=== PATIENT | female | born 1945 | race Caucasian/White ===

== ENCOUNTER 2017-05-18 18:18 | Emergency (ER) | payer OTHER, MEDICAID ==
[2017-05-18] MEDS: KETOROLAC 30 MG INJ IM (20:53)
== END 2017-05-18 21:08 | disposition home or self-care (01) ==
LOC: FTE 18:18
DX: F41.9 Anxiety disorder, unspecified (principal); M25.50 Pain in unspecified joint
CPT/HCPCS: 96372; 99284-25

== ENCOUNTER 2018-01-09 15:16 | Emergency (ER) | payer OTHER, MEDICAID | END 2018-01-09 17:00 | disposition home or self-care (01) | LOC: FTE 15:16 | DX: R21 Rash and other nonspecific skin eruption (principal); Z87.891 Personal history of nicotine dependence | CPT/HCPCS: 99283 ==

== ENCOUNTER 2018-05-10 14:18 | Emergency (ER) | payer OTHER ==
[2018-05-10 15:09] LABS: ADD MAN DIFF? NO
[2018-05-10 15:11] LABS: BASOPHIL # 0.1 10^3/ul (0.0-0.1); BASOPHILS % 0.5 % (0.0-2.0); EOSINOPHILS # 0.1 10^3/ul (0.0-0.5); EOSINOPHILS % 0.5 % (0.0-7.0); HEMATOCRIT 36.9 % (37.0-47.0); HEMOGLOBIN 11.8 g/dl (12.0-16.0); LYMPHOCYTES # 2.1 10^3/ul (0.8-2.9); LYMPHOCYTES % 18.8 % (15.0-51.0); MEAN CORPUSCULAR HEMOGLOBIN 27.4 pg (29.0-33.0); MEAN CORPUSCULAR VOLUME 85.8 fl (82.0-101.0); MEAN PLATELET VOLUME 10.9 fl (7.4-10.4); MONOCYTE # 0.9 10^3/ul (0.3-0.9); MONOCYTES % 8.1 % (0.0-11.0); NEUTROPHIL # 7.9 10^3/ul (1.6-7.5); NEUTROPHILS % 71.6 % (39.0-77.0); PLATELET COUNT 232 10^3/UL (140-415); RED CELL DISTRIBUTION WIDTH 14.1 % (11.5-14.5)
[2018-05-10 15:11] LABS: WHITE BLOOD COUNT 11.1 10^3/ul (4.8-10.8)
[2018-05-10] MEDS: HYDROmorphONE 1 MG/ML SYG IV (15:23)
[2018-05-10] MEDS: ONDANSETRON 4 MG INJ IV (15:23)
[2018-05-10 15:31] LABS: ALANINE AMINOTRANSFERASE 24 IU/L (13-69); ALBUMIN 3.8 g/dl (3.3-4.9); ALBUMIN/GLOBULIN RATIO 1.08; ALKALINE PHOSPHATASE 83 IU/L (42-121); ANION GAP 6 (5-13); ASPARTATE AMINO TRANSFERASE 42 IU/L (15-46); BILIRUBIN,INDIRECT 0.4 mg/dl (0-1.1); BILIRUBIN,TOTAL 0.4 mg/dl (0.2-1.3); BLOOD UREA NITROGEN 18 mg/dl (7-20); CARBON DIOXIDE 30 mmol/L (21-31); CHLORIDE 103 mmol/L (97-110); CREATININE 0.69 mg/dl (0.44-1.00); GLUCOSE 107 mg/dl (70-220); POTASSIUM 3.4 mmol/L (3.5-5.1); SODIUM 139 mmol/L (135-144); TOTAL PROTEIN 7.3 g/dl (6.1-8.1)
[2018-05-10] MEDS: SOD CHLORIDE 0.9% 100 ML (16:29)
[2018-05-10] MEDS: IOHEXOL 300MG/ML 150 ML BTL (16:29)
== END 2018-05-10 18:37 | disposition home or self-care (01) ==
LOC: E/R 14:18
DX: R10.31 Right lower quadrant pain (principal); F17.210 Nicotine dependence, cigarettes, uncomplicated; M54.42 Lumbago with sciatica, left side
CPT/HCPCS: 36415; 74177; 80053; 85025; 96374; 96375; 99285-25

== ENCOUNTER → 2018-12-02 | Emergency (ER) | payer OTHER ==
[2018-12-02] MEDS: CEFTRIAXONE 1 GM INJ IM (17:07)
[2018-12-02] MEDS: AZITHROMYCIN 500 MG TAB PO (17:08)
[2018-12-02] MEDS: LIDOCAINE 1% (MPF) 5 ML VIAL INFIL (17:08)
== END | disposition home or self-care (01) ==
LOC: FTE 15:34
DX: J18.1 Lobar pneumonia, unspecified organism (principal); F17.210 Nicotine dependence, cigarettes, uncomplicated
CPT/HCPCS: 71046; 93005; 96372; 99284-25